=== PATIENT | female | born 1970 | race Caucasian/White ===

== ENCOUNTER 2021-06-09 19:34 | Emergency (ER) | payer BC, SELFPAY ==
[2021-06-09 19:41] VITALS: BP 134/58; PULSE 72; RESP 16; TEMP 36.5; O2SAT 97; BMI 29.6
--- NOTE | 2021-06-09 19:47 | ED_ITS ---
HPI - Wound/Laceration General: Chief Complaint: Wound/Laceration Stated Complaint: Finger lac Time Seen by Provider: 06/09/21 19:46 History of Present Illness: HPI narrative: Patient is a 50-year-old female who comes to the ED with laceration to right hand. Patient was cleaning a knife in the kitchen and her right index finger touched the blade. Cause a laceration near the distal edge of right index finger. No nailbed injury or damage noted. I asked patient about her tetanus shot and she did not want to get one today. Patient did say she is new in town and would like a referral to a primary care physician to get set up with them for establish care. Associated symptoms: Denies chills, fever(s), nausea or vomiting Review of Systems Const: Denies: fever(s), chills or fatigue Eyes: Denies: change in vision or eye discomfort ENMT: Denies: throat pain, odynophagia, nasal discharge or nasal congestion Card: Denies: chest pain, palpitations, edema, swelling of feet/ankles, dyspnea on exertion or orthopnea Resp: Denies: dyspnea, productive cough or non-productive cough GI: Denies: abdominal pain, nausea, vomiting, diarrhea, constipation or hematochezia : Denies: flank pain, dysuria or hematuria Musc: Denies: neck pain, back pain or extremity swelling Skin/Breast: Reports: new lesions (linear laceration to distal end of right index finger); Denies: rash Neuro: Denies: headache(s), numbness in extremities or weakness in extremities Physical Exam Const: COMMON NORMALS: no acute distress, patient oriented x3 and alert HENMT: COMMON NORMALS: normocephalic HEAD & SCALP: normocephalic MOUTH: Normal oral and palatal mucosa present THROAT: posterior oropharynx normal and uvula midline Neck/C-Spine: COMMON NORMALS: supple GENERAL: Yes normal visual inspection Resp: COMMON NORMALS: normal respiratory effort, No retractions, No use of accessory muscles and clear to auscultation bilaterally AUSCULTATION: clear to auscultation bilaterally Cardio: COMMON NORMALS: regular rate, regular rhythm, S1 normal heart sound present, S2 normal heart sound present, No gallops present (Cardio), No clicks present (Cardio), No murmurs present (Cardio) and Peripheral pulses 2+ throughout RATE: regular rate RHYTHM: regular rhythm HEART SOUNDS: S1 normal heart sound present and S2 normal heart sound present PERIPHERAL PULSES: Peripheral pulses 2+ throughout GI: COMMON NORMALS: Normal to inspection, nondistended, normoactive bowel sounds present, Soft to palpation, non-tender and no masses PALPATION: Yes Soft to palpation : COMMON NORMALS: Yes no CVA tenderness BLADDER/KIDNEY EXAM: Yes no CVA tenderness Back/Pelvis: COMMON NORMALS: no CVA tenderness Extremity: NARRATIVE EXTREMITY EXAM: Superficial linear laceration to distal tip of right index finger. No nailbed involvement. Patient has full range of motion in fingers no concern for any tendon laceration. GENERAL: Yes normal exam except as noted Neuro: COMMON NORMALS: patient oriented x3 and moves all extremities SENSORIUM/ORIENTATION: Yes alert Skin: GENERAL SKIN EXAM: dry skin TRAUMA: laceration (Distal end of right index finger) linear (Superficial 0.5cm linear laceration-no nail bed damage), superficial, motor nerve function intact and sensation intact; not actively bleeding and no foreign bodies present Procedures Laceration Laceration 1: Site: hand (right index finger-distal tip) Side (If applicable): right Size (cm): 0.5 Description: linear and clean Depth: simple, single layer Pre-repair: irrigated extensively (With normal saline and cleaned with CHG swab.) Skin layer closed with: other (Dermabond) Technique: other (Dermabond) Course Vital Signs: Vital signs: Vital Signs Temperature 97.7 F 06/09/21 19:41 Pulse Rate 72 06/09/21 19:41 Respiratory Rate 16 06/09/21 19:41 Blood Pressure 134/58 06/09/21 19:41 Pulse Oximetry 97 06/09/21 19:41 MDM - Wound/Laceration MDM Narrative: Medical decision making narrative: Patient is a 50-year-old female comes to the ED with a superficial laceration to distal end of right index finger?laceration approximately 0.5 cm in length. No active bleeding and laceration appears well closed up. No nailbed damage noted. Full range of motion of fingers and no concern for any tendon damage. Patient did not want a tetanus shot today. I irrigated the laceration site extensively with normal saline and cleaned with CHG swab. Dermabond was then applied on laceration site to help close up. Patient is new in town and would like a referral to get established with a PCP so I put in a referral with case management. Patient discharged home and told to follow-up with PCP at her next scheduled appointment. Return to ED precautions given. She was sent home with a prophylactic prescription for an antibiotic. Patient understood agree with plan. Discharge Plan Discharge Patient Disposition: Home Clinical Impression: Finger laceration Qualifiers: Encounter type: initial encounter Finger: index finger Damage to nail status: w ithout damage Foreign body presence: without foreign body Laterality: right Qualified Code(s): S61.210A - Laceration without foreign body of right index finger without damage to nail, initial encounter Condition: Stable Prescriptions: New cephalexin 500 mg capsule 500 mg PO Q6H 3 Days Qty: 12 RF: 0 Discharge Orders: Discharge ED (Routine); Ordered 06/09/21 Ordered By: Karthik Barragan Discharge Diet: Regular Discharge Activity: Increase activity as tolerated and Limit activity as instructed Patient Instructions: Laceration (DC) Activity Restrictions/Additional Instructions: Follow-up with medical provider as directed. Case management should be contacting you next several days set up an appointment with a PCP. Take medications as prescribed. Keep laceration site clean and dry for the next 24 to 48 hours. Clean and rebandage daily. Return to the ER or your medical provider if condition worsens. Please read and understand discharge instructions. Thank you for choosing [facility] for your healthcare needs today. Please realize this is an emergency room and that we are providing you with a medical screening exam and this may not be complete and all inclusive of all the testing and or work up that you may need to determine your ailment or severity of your illness. It is very important that you follow up as instructed or that you return to the Emergency Department should you have concerns or if your condition changes or worsens in any way. Coding Level of Care Code ED Ink Technician for Bladimir Lozano Exam Comprehensive
--- NOTE | 2021-06-14 12:49 | DCPLANNER ---
manager sales training had message to speak with patient about getting established with a primary care physician. manager sales training called phone number [phone], unable to speak with patient and unable to leave a voicemail for patient.
== END 2021-06-09 20:19 | disposition home or self-care (01) ==
PROVIDERS: Emergency Provider Physician Assistant
DX: S61.210A Laceration without foreign body of right index finger without damage to nail, initial encounter (principal)
CPT/HCPCS: 12001; 99282